=== PATIENT | female | born 1980 | race Caucasian/White ===

== ENCOUNTER 2019-03-05 22:10 | Emergency (ER) | payer OTHER ==
[2019-03-06] MEDS: HYDROCODONE/APAP (5/325) TAB PO (00:48)
[2019-03-06] MEDS: KETOROLAC 30 MG INJ IM (00:48)
== END 2019-03-06 01:12 | disposition home or self-care (01) ==
LOC: FTE 03-06 01:12
DX: S89.92XA Unspecified injury of left lower leg, initial encounter (principal); X50.1XXA Overexertion from prolonged static or awkward postures, initial encounter; Y92.9 Unspecified place or not applicable
CPT/HCPCS: 73562; 81025; 96372; 99284-25